=== PATIENT | male | born 1935 | race Caucasian/White ===

== ENCOUNTER 2019-05-03 22:49 | Outpatient (REF) | payer MEDICARE, BC, SELFPAY ==
[2019-05-03 23:00] LABS: Anion Gap 8.8 mmol/L (3-11); BUN 20 mg/dL (7-18); CO2 27.2 mmol/L (21.0-32.0); CREATININE 1.37 mg/dL (0.70-1.30); Calcium 8.9 mg/dL (8.5-10.1); Calculated LDL 51 mg/dL; Chloride 105 mmol/L (98-107); Cholesterol 106 mg/dL (50-200); Estimated GFR 49.62 (mL/min/1.73m2); Glucose 93 mg/dL (70-100); HDL Cholesterol 45 mg/dL (40-60); Potassium 4.4 mmol/L (3.5-5.1); Sodium 141 mmol/L (136-145); Triglyceride 50 mg/dL (30-150); VALPROIC ACID 47.4 ug/mL (50-100)
[2019-05-03 23:07] LABS: Hemoglobin A1C 6.1 % (4.5-6.2)
[2019-05-05 19:01] LABS: PSA, Diagnostic <0.1 ng/ml (0-6.5)
== END 2019-05-03 23:09 ==
LOC: NCHCN 22:49
PROVIDERS: PCP Internal Medicine; Visit Provider Internal Medicine
DX: F31.81 Bipolar II disorder (principal); Z85.46 Personal history of malignant neoplasm of prostate; Z79.899 Other long term (current) drug therapy; Z51.81 Encounter for therapeutic drug level monitoring; R73.02 Impaired glucose tolerance (oral); I10 Essential (primary) hypertension; Z13.6 Encounter for screening for cardiovascular disorders
CPT/HCPCS: 80048; 80061; 80164; 83036; 84153

== ENCOUNTER 2020-02-26 16:35 | Outpatient (REF) | payer MEDICARE, BC, SELFPAY ==
[2020-02-26 20:53] LABS: HGB 11.5 g/dL (13.5-17.5); MCH 31.9 pg (27.0-33.0); MCHC 33.8 % (32.0-36.0); MCV 94.2 fL (80-95); MPV 10.4 fL (8.0-11.0); Platelet Count 266 10^3/uL (130-400); RBC 3.61 10^6/uL (4.36-5.78); RDW 13.4 % (11.8-14.1); RDW-SD 46.9 fL
[2020-02-26 21:08] LABS: ALT 16 U/L (16-63); AST 13 U/L (15-37); Albumin 3.8 g/dL (3.4-5.0); Alkaline Phosphatase 73 U/L (46-116); Anion Gap 8.3 mmol/L (3-11); BUN 21 mg/dL (7-18); Bilirubin, Total 0.5 mg/dL (0.2-1.0); CO2 25.7 mmol/L (21.0-32.0); CREATININE 1.16 mg/dL (0.70-1.30); Calcium 9.3 mg/dL (8.5-10.1); Chloride 104 mmol/L (98-107); Estimated GFR 59.98 (mL/min/1.73m2); Glucose 103 mg/dL (74-106); Potassium 4.7 mmol/L (3.5-5.1); Sodium 138 mmol/L (136-145); Total Protein 6.6 g/dL (6.4-8.2)
[2020-02-26 21:25] LABS: Hemoglobin A1C 5.8 % (3.8-5.6)
[2020-02-28 09:55] LABS: PSA, Screening <0.1 ng/mL (0.0-6.5)
== END 2020-02-26 16:55 ==
LOC: NCHCN 16:35
PROVIDERS: PCP Internal Medicine; Visit Provider Internal Medicine
DX: R73.02 Impaired glucose tolerance (oral) (principal); K92.1 Melena; F31.9 Bipolar disorder, unspecified; Z85.46 Personal history of malignant neoplasm of prostate; Z51.81 Encounter for therapeutic drug level monitoring
CPT/HCPCS: 80053; 84153; 85027; 80164; 83036

== ENCOUNTER 2020-05-08 17:58 | Outpatient (REF) | payer MEDICARE, BC, SELFPAY ==
[2020-05-08 22:27] LABS: Reticulocyte 1.2 % (0.5-2.4)
[2020-05-08 23:01] LABS: Iron 92 ug/dL (65-175); Total Iron Binding Capacity 286 ug/dL (250-450); Transferrin Sat 32 % (20-55)
[2020-05-08 23:04] LABS: Ferritin 97 ng/mL (26-388); Vitamin B12 242 pg/mL (193-986)
[2020-05-09 15:04] LABS: HGB 12.3 g/dL (13.5-17.5); MCH 31.1 pg (27.0-33.0); MCHC 32.4 % (32.0-36.0); MPV 10.3 fL (8.0-11.0); Platelet Count 329 10^3/uL (130-400); RBC 3.96 10^6/uL (4.36-5.78); RDW 12.8 % (11.8-14.1); RDW-SD 45.2 fL; WBC 6.17 10^3/uL (4.4-10.8)
== END 2020-05-08 18:18 ==
LOC: NCHCN 17:58
PROVIDERS: PCP Internal Medicine; Visit Provider Internal Medicine
DX: D64.9 Anemia, unspecified (principal); K92.1 Melena
CPT/HCPCS: 85027; 82607; 82728; 83540; 83550; 85045

== ENCOUNTER 2020-07-29 19:16 | Outpatient (REF) | payer MEDICARE, BC, SELFPAY ==
[2020-07-29 20:05] LABS: Abs Immature Grans 0.02 10^3/uL (0.0-0.06); Absolute Basophil Count 0.05 10^3/uL (0.0-0.2); Absolute Eosinophil Count 0.22 10^3/uL (0.0-0.7); Absolute Monocyte Count 0.56 10^3/uL (0.1-0.8); Absolute Neutrophil Count 5.28 10^3/uL (1.2-6.7); Basophils % 0.7; HGB 11.4 g/dL (13.5-17.5); Immature Grans % 0.3; Lymphocytes % 17.5; MCH 32.1 pg (27.0-33.0); MCHC 33.5 % (32.0-36.0); MCV 95.8 fL (80-95); MPV 9.8 fL (8.0-11.0); Monocytes % 7.5; Nucleated RBC 0 %; Platelet Count 318 10^3/uL (130-400); RBC 3.55 10^6/uL (4.36-5.78); RDW 14.1 % (11.8-14.1); RDW-SD 50.2 fL; WBC 7.43 10^3/uL (4.4-10.8)
[2020-07-29 20:53] LABS: BUN 19 mg/dL (7-18); CREATININE 1.36 mg/dL (0.70-1.30); Calcium 9.2 mg/dL (8.5-10.1); Chloride 105 mmol/L (98-107); Estimated GFR 49.92 (mL/min/1.73m2); Glucose 90 mg/dL (74-106); Potassium 4.6 mmol/L (3.5-5.1); Sodium 140 mmol/L (136-145); Vitamin B12 1122 pg/mL (193-986)
== END 2020-07-29 19:36 ==
LOC: NCHCN 19:16
PROVIDERS: PCP Internal Medicine; Visit Provider Internal Medicine
DX: D64.9 Anemia, unspecified (principal); I10 Essential (primary) hypertension
CPT/HCPCS: 80048; 82607; 85025

== ENCOUNTER 2020-08-30 18:32 | Outpatient (REF) | payer MEDICARE, BC, SELFPAY ==
[2020-08-30 22:02] LABS: Anion Gap 11.7 mmol/L (3-11); BUN 16 mg/dL (7-18); CO2 24.3 mmol/L (21.0-32.0); CREATININE 1.3 mg/dL (0.70-1.30); Calcium 9.1 mg/dL (8.5-10.1); Chloride 106 mmol/L (98-107); Estimated GFR 52.59 (mL/min/1.73m2); Glucose 78 mg/dL (74-106); Potassium 4.3 mmol/L (3.5-5.1); Sodium 142 mmol/L (136-145)
[2020-08-30 22:04] LABS: Hemoglobin A1C 5.6 % (<5.7)
== END 2020-08-30 18:33 | disposition home or self-care (01) ==
LOC: NCHCN 18:32
PROVIDERS: PCP Internal Medicine; Visit Provider Internal Medicine
DX: I10 Essential (primary) hypertension (principal); R73.03 Prediabetes
CPT/HCPCS: 80048; 83036

== ENCOUNTER 2021-04-10 09:00 | Outpatient (REF) | payer MEDICARE, BC, SELFPAY ==
[2021-04-09 22:14] LABS: Anion Gap 9.1 mmol/L (3-11); BUN 23 mg/dL (7-18); CO2 27.9 mmol/L (21.0-32.0); CREATININE 1.3 mg/dL (0.70-1.30); Calcium 9.4 mg/dL (8.5-10.1); Chloride 106 mmol/L (98-107); Estimated GFR 52.47 (mL/min/1.73m2); Glucose 103 mg/dL (74-106); Potassium 4.8 mmol/L (3.5-5.1); Sodium 143 mmol/L (136-145)
[2021-04-09 23:20] LABS: ALT 19 U/L (16-63); AST 14 U/L (15-37); Albumin 4.1 g/dL (3.4-5.0); Alkaline Phosphatase 72 U/L (46-116); Bilirubin, Total 0.5 mg/dL (0.2-1.0)
[2021-04-10 17:09] LABS: PSA, Screening <0.1 ng/mL (0.0-6.5)
== END 2021-04-10 09:01 | disposition home or self-care (01) ==
LOC: NCHCN 09:00
PROVIDERS: PCP Internal Medicine; Referring Provider Internal Medicine; Visit Provider Internal Medicine
DX: I10 Essential (primary) hypertension (principal); Z51.81 Encounter for therapeutic drug level monitoring
CPT/HCPCS: 80048; 80053; 84153

== ENCOUNTER 2021-10-01 20:37 | Outpatient (REF) | payer MEDICARE, BC, SELFPAY ==
[2021-10-01 20:49] LABS: Abs Immature Grans 0.02 10^3/uL (0.0-0.06); Absolute Basophil Count 0.05 10^3/uL (0.0-0.2); Absolute Eosinophil Count 0.11 10^3/uL (0.0-0.7); Absolute Lymphocyte Count 3.03 10^3/uL (1.2-3.4); Absolute Monocyte Count 0.48 10^3/uL (0.1-0.8); Absolute Neutrophil Count 2.74 10^3/uL (1.2-6.7); Basophils % 0.8; Eosinophils % 1.7; HCT 34.8 % (40.0-50.0); HGB 11.4 g/dL (13.5-17.5); Immature Grans % 0.3; Lymphocytes % 47.1; MCH 31.8 pg (27.0-33.0); MCHC 32.8 % (32.0-36.0); MCV 96.9 fL (80-95); MPV 9.7 fL (8.0-11.0); Monocytes % 7.5; Neutrophils % 42.6; Nucleated RBC 0 %; Platelet Count 267 10^3/uL (130-400); RBC 3.59 10^6/uL (4.36-5.78); RDW 13.6 % (11.8-14.1); RDW-SD 48.8 fL; WBC 6.43 10^3/uL (4.4-10.8)
[2021-10-01 21:08] LABS: ALT 15 U/L (16-63); AST 11 U/L (15-37); Albumin 3.9 g/dL (3.4-5.0); Alkaline Phosphatase 67 U/L (46-116); Anion Gap 11.1 mmol/L (3-11); BUN 24 mg/dL (7-18); Bilirubin, Total 0.5 mg/dL (0.2-1.0); CO2 23.9 mmol/L (21.0-32.0); CREATININE 1.4 mg/dL (0.70-1.30); Calcium 9.2 mg/dL (8.5-10.1); Chloride 105 mmol/L (98-107); Estimated GFR 48.16 (mL/min/1.73m2); Glucose 87 mg/dL (74-106); Potassium 4.6 mmol/L (3.5-5.1); Sodium 140 mmol/L (136-145); Total Protein 6.8 g/dL (6.4-8.2)
== END 2021-10-01 20:38 | disposition home or self-care (01) ==
LOC: NCHCN 20:37
PROVIDERS: PCP Internal Medicine; Visit Provider Internal Medicine
DX: Z51.81 Encounter for therapeutic drug level monitoring (principal); I10 Essential (primary) hypertension
CPT/HCPCS: 80053; 85025

== ENCOUNTER 2022-10-22 21:50 | Outpatient (REF) | payer MEDICARE, BC, SELFPAY ==
[2022-10-22 22:12] LABS: Anion Gap 7.6 mmol/L (3-11); BUN 17 mg/dL (7-18); CO2 26.4 mmol/L (21.0-32.0); CREATININE 1.4 mg/dL (0.70-1.30); Calcium 9.4 mg/dL (8.5-10.1); Chloride 104 mmol/L (98-107); Estimated GFR 48.95 (mL/min/1.73m2); Glucose 84 mg/dL (74-106); Potassium 5.4 mmol/L (3.5-5.1); Sodium 138 mmol/L (136-145)
[2022-10-22 22:13] LABS: HCT 32.2 % (40.0-50.0); HGB 10.7 g/dL (13.5-17.5); MCH 32.7 pg (27.0-33.0); MCHC 33.2 % (32.0-36.0); MCV 99 fL (80-95); MPV 9.5 fL (8.0-11.0); Platelet Count 316 10^3/uL (130-400); RBC 3.27 10^6/uL (4.36-5.78); RDW 14.4 % (11.8-14.1); RDW-SD 52.2 fL; WBC 11.34 10^3/uL (4.4-10.8)
[2022-10-23 20:53] LABS: PSA, Screening <0.1 ng/mL (<=6.5)
== END 2022-10-22 21:51 | disposition home or self-care (01) ==
LOC: NCHCN 21:50
PROVIDERS: PCP Internal Medicine; Visit Provider Internal Medicine
DX: I10 Essential (primary) hypertension (principal); D64.9 Anemia, unspecified; Z12.5 Encounter for screening for malignant neoplasm of prostate
CPT/HCPCS: 80048; 84153; 85027

== ENCOUNTER 2023-04-28 22:37 | Outpatient (REF) | payer MEDICARE, BC, SELFPAY ==
[2023-04-28 22:44] LABS: Abs Immature Grans 0.02 10^3/uL (0.0-0.06); HCT 32.7 % (40.0-50.0); HGB 10.9 g/dL (13.5-17.5); MCH 32.6 pg (27.0-33.0); MCHC 33.3 % (32.0-36.0); MCV 98 fL (80-95); MPV 9.4 fL (8.0-11.0); Platelet Count 299 10^3/uL (130-400); RBC 3.34 10^6/uL (4.36-5.78); RDW 14.3 % (11.8-14.1); RDW-SD 51.8 fL; WBC 14.31 10^3/uL (4.4-10.8)
[2023-04-28 23:08] LABS: Iron 85 ug/dL (65-175); Total Iron Binding Capacity 273 ug/dL (250-450); Transferrin Sat 31 % (20-55)
[2023-04-28 23:15] LABS: Absolute Basophil Count 0.14 10^3/uL (0.0-0.2); Absolute Eosinophil Count 0.14 10^3/uL (0.0-0.7); Absolute Lymphocyte Count 12.45 10^3/uL (1.2-3.4); Absolute Monocyte Count 0.43 10^3/uL (0.1-0.8); Absolute Neutrophil Count 1.14 10^3/uL (1.2-6.7); Atypical Lymphocytes % 52
[2023-04-28 23:16] LABS: Diff Comment Manual Differential; RBC Morphology Normal
[2023-04-28 23:22] LABS: Anion Gap 10.4 mmol/L (3-11); BUN 19 mg/dL (7-18); CO2 22.6 mmol/L (21.0-32.0); CREATININE 1.4 mg/dL (0.70-1.30); Calcium 9.2 mg/dL (8.5-10.1); Chloride 102 mmol/L (98-107); Estimated GFR 48.65 (mL/min/1.73m2); Ferritin 111 ng/mL (26-388); Folate 12.2 ng/mL (8.6-20.0); Glucose 87 mg/dL (74-106); Potassium 4.5 mmol/L (3.5-5.1); Sodium 135 mmol/L (136-145); Vitamin B12 257 pg/mL (193-986)
== END 2023-04-28 22:38 | disposition home or self-care (01) ==
LOC: NCHCN 22:37
PROVIDERS: PCP Internal Medicine; Visit Provider Internal Medicine
DX: D64.9 Anemia, unspecified (principal); I10 Essential (primary) hypertension
CPT/HCPCS: 80048; 82607; 82728; 82746; 83540; 83550; 85025

== ENCOUNTER 2024-10-30 15:00 | Outpatient (REF) | payer MEDICARE, BC, SELFPAY ==
[2024-10-30 21:41] LABS: Abs Immature Grans 0.01 10^3/uL (0.0-0.06); MCH 33.3 pg (27.0-33.0); MCHC 32.4 % (32.0-36.0); MCV 103 fL (80-95); MPV 9.5 fL (8.0-11.0); Platelet Count 349 10^3/uL (130-400); RDW 14.9 % (11.8-14.1); RDW-SD 56.3 fL; WBC 19.99 10^3/uL (4.4-10.8)
[2024-10-30 22:04] LABS: Absolute Lymphocyte Count 18.39 10^3/uL (1.2-3.4)
[2024-10-30 22:08] LABS: Diff Comment Manual Differential
[2024-10-30 22:09] LABS: RBC Morphology Normal
[2024-10-30 22:26] LABS: ALT 19 U/L (16-63); AST 20 U/L (15-37); Albumin 3.9 g/dL (3.4-5.0); Alkaline Phosphatase 93 U/L (46-116); Anion Gap 10.4 mmol/L (3-11); BUN 21 mg/dL (7-18); Bilirubin, Total 0.4 mg/dL (0.2-1.0); CO2 25.6 mmol/L (21.0-32.0); CREATININE 1.3 mg/dL (0.70-1.30); Calcium 9.6 mg/dL (8.5-10.1); Chloride 106 mmol/L (98-107); Estimated GFR 52.84 (mL/min/1.73m2); Glucose 115 mg/dL (74-106); Potassium 4.8 mmol/L (3.5-5.1); Sodium 142 mmol/L (136-145); Total Protein 7.7 g/dL (6.4-8.2)
[2024-10-30 22:30] LABS: Vitamin B12 1240 pg/mL (193-986)
[2024-10-31 18:29] LABS: PSA, Diagnostic <0.1 ng/mL (<=6.5)
[2024-11-01 10:45] LABS: IgA 231 mg/dL (85-499); IgG 1246 mg/dL (610-1616); IgM 104 mg/dL (35-242); Kappa Free Light Chain 2.79 mg/dL (0.33-1.94); Lambda Free Light Chain 3.62 mg/dL (0.57-2.63)
[2024-11-02 15:50] LABS: Albumin 58.3 % (55.8-66.1); Albumin g/dL 4.2 g/dL (3.6-5.2); Comment (See Note); Monoclonal Spike 2.7 % (None Seen); Monoclonal Spike g/dL 0.2 g/dL (None Seen); Total Protein 7.2 g/dL (6.3-8.2)
[2024-12-11 08:13] LABS: Immunotyping, Serum (See Note)
== END 2024-10-30 15:01 | disposition home or self-care (01) ==
LOC: NCHCN 15:00
PROVIDERS: Internal Medicine Hematology & Oncology; PCP Internal Medicine; Visit Provider Internal Medicine
DX: Z85.46 Personal history of malignant neoplasm of prostate (principal); E53.8 Deficiency of other specified B group vitamins; C91.Z0 Other lymphoid leukemia not having achieved remission
CPT/HCPCS: 80053; 82784; 82607; 83883; 84153; 84165; 85025; 86320

== ENCOUNTER 2024-11-17 21:55 | Outpatient (REF) | payer MEDICARE, BC, SELFPAY ==
[2024-11-17 22:35] LABS: Abs Immature Grans 0.02 10^3/uL (0.0-0.06); HCT 33.3 % (40.0-50.0); HGB 10.8 g/dL (13.5-17.5); MCH 33.3 pg (27.0-33.0); MCHC 32.4 % (32.0-36.0); MCV 103 fL (80-95); MPV 9.7 fL (8.0-11.0); Platelet Count 284 10^3/uL (130-400); RBC 3.24 10^6/uL (4.36-5.78); RDW 14.9 % (11.8-14.1); RDW-SD 56.9 fL; WBC 20.75 10^3/uL (4.4-10.8)
[2024-11-17 22:45] LABS: Absolute Neutrophil Count 1.04 10^3/uL (1.2-6.7)
[2024-11-17 22:46] LABS: Absolute Eosinophil Count 0.21 10^3/uL (0.0-0.7); Absolute Lymphocyte Count 18.88 10^3/uL (1.2-3.4); Absolute Monocyte Count 0.62 10^3/uL (0.1-0.8); Atypical Lymphocytes % 7 %; Diff Comment Manual Differential; RBC Morphology Normal
[2024-11-17 23:14] LABS: ALT 15 U/L (16-63); AST 23 U/L (15-37); Albumin 3.8 g/dL (3.4-5.0); Alkaline Phosphatase 86 U/L (46-116); BUN 27 mg/dL (7-18); Bilirubin, Total 0.5 mg/dL (0.2-1.0); CREATININE 1.2 mg/dL (0.70-1.30); Calcium 9.4 mg/dL (8.5-10.1); Chloride 106 mmol/L (98-107); Estimated GFR 58.17 (mL/min/1.73m2); Glucose 105 mg/dL (74-106); Potassium 4.5 mmol/L (3.5-5.1); Sodium 142 mmol/L (136-145); Total Protein 7.3 g/dL (6.4-8.2); Vitamin B12 1179 pg/mL (193-986)
[2024-11-20 10:24] LABS: IgA 226 mg/dL (85-499); IgG 1169 mg/dL (610-1616); IgM 105 mg/dL (35-242); Kappa Free Light Chain 2.83 mg/dL (0.33-1.94); Lambda Free Light Chain 3.39 mg/dL (0.57-2.63)
[2024-11-21 15:18] LABS: Comment (See Note); Monoclonal Spike 3.8 % (None Seen); Monoclonal Spike g/dL 0.3 g/dL (None Seen); Total Protein 6.6 g/dL (6.3-8.2)
[2024-11-21 16:52] LABS: Immunotyping, Serum (See Note)
== END 2024-11-17 21:56 | disposition home or self-care (01) ==
LOC: LBN 21:55
PROVIDERS: PCP Internal Medicine; Visit Provider Internal Medicine
DX: D47.2 Monoclonal gammopathy (principal); C91.Z0 Other lymphoid leukemia not having achieved remission
CPT/HCPCS: 80053; 82784; 82607; 83883; 84165; 85025; 86320